=== PATIENT | female | born 1970 ===

== ENCOUNTER 2018-02-11 15:27 | Outpatient (CLI) | payer OTHER | END 2018-02-11 15:35 | disposition home or self-care (01) | LOC: RAD 15:27 | DX: M25.572 Pain in left ankle and joints of left foot (principal) ==

== ENCOUNTER 2019-07-23 09:59 | Outpatient (CLI) | payer OTHER | END 2019-07-23 17:00 | disposition home or self-care (01) | LOC: MRI 09:59 | DX: M54.17 Radiculopathy, lumbosacral region (principal) | CPT/HCPCS: 72148; 72149 ==

== ENCOUNTER 2019-07-28 10:13 | Outpatient (CLI) | payer OTHER | END 2019-07-28 10:20 | disposition home or self-care (01) | LOC: RAD 10:13 | DX: M51.16 Intervertebral disc disorders with radiculopathy, lumbar region (principal); M51.36 Other intervertebral disc degeneration, lumbar region; Z01.818 Encounter for other preprocedural examination ==

== ENCOUNTER 2019-08-26 09:02 | Outpatient (CLI) | payer OTHER | END 2019-08-26 17:00 | disposition home or self-care (01) | LOC: MRI 09:02 | DX: G96.19 Other disorders of meninges, not elsewhere classified (principal) | CPT/HCPCS: 72158 ==